=== PATIENT | male | born 1930 | race Caucasian/White ===

== ENCOUNTER 2016-07-05 02:05 | Emergency (ER) | payer MEDICARE, BC ==
--- NOTE | 2016-07-05 03:10 | EDM.PDOC ---
ED HPI GENERAL MEDICAL PROBLEM - General Chief Complaint: Chest Pain Stated Complaint: [facility] Time Seen by Provider: 07/05/16 02:29 Source of Information: Reports: Patient, Old Records, RN Notes Reviewed History Limitations: Reports: No Limitations - History of Present Illness INITIAL COMMENTS - FREE TEXT/NARRATIVE: EMS arrival Chief complaint: Strange feeling in chest HPI: 85-year-old male lives on his own, being a for 3 years, just about to go to sleep 11 PM and then started getting strange feeling in his chest. He tried to ignore it but was keeping him awake and after our he took nitroglycerin , which he had just filled June 01 and one full aspirin. His discomfort subsided. After deliberating he finally called EMS, concerned because he lives on his own. History of myocardial infarction twice previously, and both of those times he didn't have pain in his chest but he had blood pressure interfering with his breathing. His symptoms today are much milder and are now resolved. He has had 2 stents. No recent cough cold fever or infection - Related Data Allergies Allergy/AdvReac Type Severity Reaction Status Date / Time No Known Allergies Allergy Verified 05/26/15 20:17 Home Meds: Home Meds Acebutolol HCl [Acebutolol] 200 mg PO BID 03/07/13 [History] Ascorbic Acid [Vitamin C] 500 mg PO DAILY 03/07/13 [History] Aspirin [Lite Coat Aspirin] 325 mg PO DAILY 03/07/13 [History] Ca Cmb No.1/Vit D3/B-6/FA/B12 [Vitamin D3 1,000 Unit] 1,000 mcg PO DAILY [History] Calcium Carbonate [Calcium] 500 mg PO DAILY 03/07/13 [History] Enalapril Maleate 5 mg PO DAILY 03/07/13 [History] Flaxseed [Flaxseed Oil] 1,000 mg PO DAILY 03/07/13 [History] Gemfibrozil 600 mg PO DAILY 03/07/13 [History] Hydrochlorothiazide 12.5 mg PO DAILY 03/07/13 [History] Isosorbide Mononitrate [Imdur] 60 mg PO DAILY 03/07/13 [History] Multivitamin [Multivitamins] 1 each PO DAILY 03/07/13 [History] Nitroglycerin [Nitrostat] 0.4 mg SL ASDIRECTED PRN 03/07/13 [History] Ubidecarenone [Co Q-10] 100 mg PO DAILY 03/07/13 [History] Cyanocobalamin (Vitamin B12) [Vitamin B12] 1,000 mcg PO DAILY 04/21/14 [History] Cefdinir [Omnicef] 300 mg PO BID #13 cap 05/28/15 [Rx] Past Medical History Cardiovascular History: Reports: CAD, High Cholesterol, Hypertension, [place], Stents Gastrointestinal History: Reports: Diverticulosis, Other (See Below) Other Gastrointestinal History: diverticulitis Genitourinary History: Reports: Prostate Disorder, Urinary Incontinence, Other ( See Below) Other Genitourinary History: hydroceal Musculoskeletal History: Reports: Arthritis, Gout Neurological History: Reports: Migraines, Other (See Below) Other Neuro History: 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 Psychiatric History: Reports: Depression Hematologic History: Reports: Blood Transfusion(s) Oncologic (Cancer) History: Reports: Prostate Dermatologic History: Reports: Other (See Below) Other Dermatologic History: lots of brown moles - Infectious Disease History Infectious Disease History: Reports: Chicken Pox, Measles - Past Surgical History HEENT Surgical History: Reports: Cataract Surgery, Oral Surgery, Tonsillectomy Social & Family History - Tobacco Use Smoking Status *Q: Never Smoker Second Hand Smoke Exposure: No - Caffeine Use Caffeine Use: Reports: Coffee - Alcohol Use Days Per Week of Alcohol Use: 0 Number of Drinks Per Day: 1 Total Drinks Per Week: 0 - Recreational Drug Use Recreational Drug Use: No ED ROS GENERAL - Review of Systems Review Of Systems: See Below Constitutional: Reports: No Symptoms. Denies: Diaphoresis HEENT: Reports: No Symptoms Respiratory: Reports: No Symptoms Cardiovascular: Reports: Other (Chest discomfort but not painful). Denies: Chest Pain, Blood Pressure Problem, Edema, Lightheadedness Endocrine: Reports: No Symptoms GI/Abdominal: Reports: No Symptoms : Reports: No Symptoms Skin: Reports: No Symptoms Neurological: Reports: No Symptoms ED EXAM, GENERAL - Physical Exam Exam: See Below Exam Limited By: No Limitations General Appearance: Alert, No Apparent Distress Throat/Mouth: Normal Inspection, Normal Oropharynx Head: Atraumatic, Normocephalic Neck: Normal Inspection, Non-Tender. No: Carotid Bruit Respiratory/Chest: No Respiratory Distress, No Accessory Muscle Use Cardiovascular: Normal Peripheral Pulses, Regular Rate, Rhythm, No Edema, No Murmur Extremities: Normal Inspection, Non-Tender, No Pedal Edema Neurological: Alert, Oriented, No Motor/Sensory Deficits Skin Exam: Warm, Dry, Intact, Normal Color Course - Vital Signs Last Recorded V/S: Last Vital Signs Temp 36 C 07/05/16 02:11 Pulse 51 L 07/05/16 02:11 Resp 13 07/05/16 02:11 BP 140/94 H 07/05/16 02:11 Pulse Ox 97 07/05/16 02:11 - Orders/Labs/Meds Orders: Active Orders 24 hr Category Date Time Status EKG Documentation Completion [RC] ASDIRECTED Care 07/05/16 02:43 Active EKG 12 Lead [EK] Routine Ther 07/05/16 02:42 Ordered Labs: Laboratory Tests 07/05/16 07/05/16 Range/Units 02:42 02:42 WBC 4.9 (4.5-11.0) K/uL RBC 4.65 (4.30-5.90) M/uL Hgb 14.1 (12.0-15.0) g/dL Hct 42.5 (40.0-54.0) % MCV 91 (80-98) fL MCH 30 (27-31) pg MCHC 33 (32-36) % Plt Count 206 (150-400) K/uL Sodium 140 (140-148) mmol/L Potassium 4.1 (3.6-5.2) mmol/L Chloride 105 (100-108) mmol/L Carbon Dioxide 26 (21-32) mmol/L Anion Gap 8.9 (5.0-14.0) mmol/L BUN 13 (7-18) mg/dL Creatinine 1.3 (0.8-1.3) mg/dL Est Cr Clr Drug Dosing TNP Estimated GFR (MDRD) 53 L (>60) Glucose 111 H (74-106) mg/dL Calcium 8.8 (8.5-10.1) mg/dL Troponin I < 0.017 (0.000-0.056) ng/mL - Re-Assessments/Exams Free Text/Narrative Re-Assessment/Exam: 07/05/16 03:09 84-year-old male with known coronary artery disease, kept awake by an mild chest discomfort tonight which has improved. EKG shows sinus bradycardia rate 52 otherwise normal EKG 07/05/16 03:41 03.40 remained asymptomatic Lab tests reassuring Discharge Followup primary care Departure - Departure Time of Disposition: 03:42 Disposition: Home, Self-Care 01 Condition: good Clinical Impression: Angina pectoris - Discharge Information Instructions: Angina Pectoris, [id number] Forms: ED Department Discharge - My Orders Last 24 Hours: My Active Orders 07/05/16 02:42 EKG 12 Lead [EK] Routine 07/05/16 02:43 EKG Documentation Completion [RC] ASDIRECTED - Assessment/Plan Last 24 Hours: My Active Orders 07/05/16 02:42 EKG 12 Lead [EK] Routine 07/05/16 02:43 EKG Documentation Completion [RC] ASDIRECTED
[2016-07-05 03:57] VITALS: BP 140/63
== END 2016-07-05 03:55 | disposition home or self-care (01) ==
LOC: JP.ED 02:05
DX: I20.9 Angina pectoris, unspecified (principal); I25.2 Old myocardial infarction; I25.10 Atherosclerotic heart disease of native coronary artery without angina pectoris; E78.00 Pure hypercholesterolemia, unspecified; F32.9 Major depressive disorder, single episode, unspecified; Z85.46 Personal history of malignant neoplasm of prostate; Z98.49 Cataract extraction status, unspecified eye; Z98.890 Other specified postprocedural states; Z79.82 Long term (current) use of aspirin; Z79.899 Other long term (current) drug therapy
CPT/HCPCS: 36415; 80048; 84484; 85027; 93005; 93010; 99283; 99285-25

== ENCOUNTER 2017-01-08 19:28 | Emergency (ER) | payer MEDICARE, BC ==
[2017-01-08 19:47] VITALS: BP 138/70
--- NOTE | 2017-01-08 20:09 | EDM.PDOC ---
ED HPI GENERAL MEDICAL PROBLEM - General Chief Complaint: General Stated Complaint: CHEST Time Seen by Provider: 01/08/17 19:57 Source of Information: Reports: Patient, RN Notes Reviewed History Limitations: Reports: No Limitations - History of Present Illness INITIAL COMMENTS - FREE TEXT/NARRATIVE: 86-year-old gentleman presents emergency department day complaint of not feeling right he has some concern of, monoxide poisoning from his heater in his house otherwise no specific complaints Denies Pain Score (Numeric/FACES): 0 - Related Data Allergies Allergy/AdvReac Type Severity Reaction Status Date / Time No Known Allergies Allergy Verified 01/08/17 19:47 Home Meds: Home Meds Acebutolol HCl [Acebutolol] 200 mg PO BID 03/07/13 [History] Ascorbic Acid [Vitamin C] 500 mg PO DAILY 03/07/13 [History] Aspirin [Lite Coat Aspirin] 325 mg PO DAILY 03/07/13 [History] Ca Cmb No.1/Vit D3/B-6/FA/B12 [Vitamin D3 1,000 Unit] 1,000 mcg PO DAILY [History] Calcium Carbonate [Calcium] 500 mg PO DAILY 03/07/13 [History] Enalapril Maleate 5 mg PO DAILY 03/07/13 [History] Flaxseed [Flaxseed Oil] 1,000 mg PO DAILY 03/07/13 [History] Gemfibrozil 600 mg PO DAILY 03/07/13 [History] Hydrochlorothiazide 12.5 mg PO DAILY 03/07/13 [History] Isosorbide Mononitrate [Imdur] 60 mg PO DAILY 03/07/13 [History] Multivitamin [Multivitamins] 1 each PO DAILY 03/07/13 [History] Nitroglycerin [Nitrostat] 0.4 mg SL ASDIRECTED PRN 03/07/13 [History] Ubidecarenone [Co Q-10] 100 mg PO DAILY 03/07/13 [History] Cyanocobalamin (Vitamin B12) [Vitamin B12] 1,000 mcg PO DAILY 04/21/14 [History] Cefdinir [Omnicef] 300 mg PO BID #13 cap 05/28/15 [Rx] Past Medical History Cardiovascular History: Reports: CAD, High Cholesterol, Hypertension, [place], Stents Gastrointestinal History: Reports: Diverticulosis, Other (See Below) Other Gastrointestinal History: diverticulitis Genitourinary History: Reports: Prostate Disorder, Urinary Incontinence, Other ( See Below) Other Genitourinary History: hydroceal Musculoskeletal History: Reports: Arthritis, Gout Neurological History: Reports: Migraines, Other (See Below) Other Neuro History: 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 Psychiatric History: Reports: Depression Hematologic History: Reports: Blood Transfusion(s) Oncologic (Cancer) History: Reports: Prostate Dermatologic History: Reports: Other (See Below) Other Dermatologic History: lots of brown moles - Infectious Disease History Infectious Disease History: Reports: Chicken Pox, Measles, Shingles - Past Surgical History HEENT Surgical History: Reports: Cataract Surgery, Oral Surgery, Tonsillectomy Oncologic Surgical History: Reports: Other (See Below) Other Oncologic Surgeries/Procedures: prostatectomy Social & Family History - Tobacco Use Smoking Status *Q: Never Smoker Second Hand Smoke Exposure: No - Caffeine Use Caffeine Use: Reports: Coffee - Alcohol Use Days Per Week of Alcohol Use: 0 Number of Drinks Per Day: 1 Total Drinks Per Week: 0 - Recreational Drug Use Recreational Drug Use: No ED ROS GENERAL - Review of Systems Review Of Systems: See Below Constitutional: Reports: Other (Not feeling right) HEENT: Reports: No Symptoms Respiratory: Reports: No Symptoms Cardiovascular: Reports: No Symptoms GI/Abdominal: Reports: No Symptoms : Reports: No Symptoms Musculoskeletal: Reports: No Symptoms Skin: Reports: No Symptoms Neurological: Reports: No Symptoms Psychiatric: Reports: No Symptoms ED EXAM, GENERAL - Physical Exam Exam: See Below Free Text/Narrative:: General: Male, not in any distress, alert and oriented x3 HEENT: head is atraumatic normocephalic, eyes pupils equal round reactive to light, sclera clear no conjunctivitis appreciated. Ears tympanic membranes clear and ceja landmarks and light reflex are present bilaterally canals are clear. Nose no septal deviation, nares are clear, no blood present. Mouth mucosa is moist and pink no erythema or exudate noted in soft palate, tongue is midline uvula is midline, dentition is intact. Neck: Supple no thyromegaly no tracheal deviation. Nodes: Cervical nodes subclavicular nodes nontender no palpable lymphadenopathy noted. Lungs: clear to auscultation bilaterally with symmetrical respirations, no adventitious noise appreciated. CV: Regular rate and rhythm S1 and S2 appreciated no murmurs rubs or gallops noted. Abdomen: Soft, nontender, no palpable masses or organomegaly appreciated, no distention no guarding bowel sounds are present, . Neuro: Cranial nerves II through XII grossly intact Skin: Warm and dry, intact Extremities: No lower extremity edema appreciated, Course - Vital Signs Last Recorded V/S: Last Vital Signs Temp 97.9 F 01/08/17 19:45 Pulse 59 L 01/08/17 19:45 Resp 16 01/08/17 19:45 BP 138/70 01/08/17 19:45 Pulse Ox 95 01/08/17 19:45 - Orders/Labs/Meds Orders: Active Orders 24 hr Category Date Time Status Cardiac Monitoring [RC] .As Directed Care 01/08/17 20:05 Active EKG Documentation Completion [RC] ASDIRECTED Care 01/08/17 20:06 Active EKG 12 Lead [EK] Stat Ther 01/08/17 20:06 Ordered Labs: Laboratory Tests 01/08/17 01/08/17 01/08/17 Range/Units 20:06 20:17 20:17 WBC 5.3 (4.5-11.0) K/uL RBC 4.43 (4.30-5.90) M/uL Hgb 13.3 (12.0-15.0) g/dL Hct 40.3 (40.0-54.0) % MCV 91 (80-98) fL MCH 30 (27-31) pg MCHC 33 (32-36) % Plt Count 214 (150-400) K/uL Neut % (Auto) 42 (36-66) % Lymph % (Auto) 41 (24-44) % [place] % (Auto) 12 H (2-6) % Eos % (Auto) 5 H (2-4) % Baso % (Auto) 1 (0-1) % Puncture Site Rt.radial ABG pH 7.519 H (7.350-7.450) ABG pCO2 29.9 L (35.0-42.0) mmHg ABG pO2 80.5 (75.0-100.0) mmHg ABG HCO3 24.2 (22.0-26.0) mmol/L ABG Total CO2 21.0 L (23.0-27.0) mmol/L ABG O2 Saturation 96.9 (95.0-98.0) % ABG O2 Content 17.9 (15.0-23.0) %vol ABG Base Excess 2.4 mm/L ABG Hemoglobin 13.2 L (13.5-18.0) g/dL ABG Oxyhemoglobin 95.8 % ABG Carboxyhemoglobin 0.5 (0.0-1.6) % ABG Methemoglobin 0.6 % Stephen Test Passed O2 Delivery Device Room air Sodium 146 (140-148) mmol/L Potassium 3.8 (3.6-5.2) mmol/L Chloride 108 (100-108) mmol/L Carbon Dioxide 28 (21-32) mmol/L Anion Gap 10.5 (5.0-14.0) mmol/L BUN 27 H D (7-18) mg/dL Creatinine 1.4 H (0.8-1.3) mg/dL Est Cr Clr Drug Dosing 35.44 mL/min Estimated GFR (MDRD) 48 L (>60) Glucose 104 (74-106) mg/dL Lactic Acid (0.4-2.0) mmol/L Calcium 9.0 (8.5-10.1) mg/dL Total Bilirubin 0.3 D (0.2-1.0) mg/dL AST 25 (15-37) U/L ALT 21 (12-78) U/L Alkaline Phosphatase 64 (46-116) U/L Troponin I < 0.017 (0.000-0.056) ng/mL Total Protein 6.5 (6.4-8.2) g/dL Albumin 3.4 (3.4-5.0) g/dL Globulin 3.1 (2.3-3.5) g/dL Albumin/Globulin Ratio 1.1 L (1.2-2.2) Lipase 287 (73-393) U/L Urine Color Urine Appearance Urine pH (4.5-8.0) Ur Specific [place] (1.008-1.030) Urine Protein (NEGATIVE) mg/dL Urine Glucose (UA) (NEGATIVE) mg/dL Urine Ketones (NEGATIVE) mg/dL Urine Occult Blood (NEGATIVE) Urine Nitrite (NEGAITVE) Urine Bilirubin (NEGATIVE) Urine Urobilinogen (NORMAL) mg/dL Ur Leukocyte Esterase (NEGATIVE) Urine RBC (0-5) Urine WBC (0-5) Ur Epithelial Cells Amorphous Sediment Urine Bacteria Urine Mucus Urine Other 01/08/17 01/08/17 Range/Units 20:17 21:05 WBC (4.5-11.0) K/uL RBC (4.30-5.90) M/uL Hgb (12.0-15.0) g/dL Hct (40.0-54.0) % MCV (80-98) fL MCH (27-31) pg MCHC (32-36) % Plt Count (150-400) K/uL Neut % (Auto) (36-66) % Lymph % (Auto) (24-44) % [place] % (Auto) (2-6) % Eos % (Auto) (2-4) % Baso % (Auto) (0-1) % Puncture Site ABG pH (7.350-7.450) ABG pCO2 (35.0-42.0) mmHg ABG pO2 (75.0-100.0) mmHg ABG HCO3 (22.0-26.0) mmol/L ABG Total CO2 (23.0-27.0) mmol/L ABG O2 Saturation (95.0-98.0) % ABG O2 Content (15.0-23.0) %vol ABG Base Excess mm/L ABG Hemoglobin (13.5-18.0) g/dL ABG Oxyhemoglobin % ABG Carboxyhemoglobin (0.0-1.6) % ABG Methemoglobin % Stephen Test O2 Delivery Device Sodium (140-148) mmol/L Potassium (3.6-5.2) mmol/L Chloride (100-108) mmol/L Carbon Dioxide (21-32) mmol/L Anion Gap (5.0-14.0) mmol/L BUN (7-18) mg/dL Creatinine (0.8-1.3) mg/dL Est Cr Clr Drug Dosing mL/min Estimated GFR (MDRD) (>60) Glucose (74-106) mg/dL Lactic Acid 1.1 (0.4-2.0) mmol/L Calcium (8.5-10.1) mg/dL Total Bilirubin (0.2-1.0) mg/dL AST (15-37) U/L ALT (12-78) U/L Alkaline Phosphatase (46-116) U/L Troponin I (0.000-0.056) ng/mL Total Protein (6.4-8.2) g/dL Albumin (3.4-5.0) g/dL Globulin (2.3-3.5) g/dL Albumin/Globulin Ratio (1.2-2.2) Lipase (73-393) U/L Urine Color Yellow Urine Appearance Clear Urine pH 6.0 (4.5-8.0) Ur Specific [place] 1.020 (1.008-1.030) Urine Protein Negative (NEGATIVE) mg/dL Urine Glucose (UA) Normal (NEGATIVE) mg/dL Urine Ketones Negative (NEGATIVE) mg/dL Urine Occult Blood Negative (NEGATIVE) Urine Nitrite Negative (NEGAITVE) Urine Bilirubin Negative (NEGATIVE) Urine Urobilinogen Normal (NORMAL) mg/dL Ur Leukocyte Esterase Negative (NEGATIVE) Urine RBC 0-5 (0-5) Urine WBC Not seen (0-5) Ur Epithelial Cells Few Amorphous Sediment Not seen Urine Bacteria Few Urine Mucus Not seen Urine Other Departure - Departure Time of Disposition: 21:23 Disposition: Home, Self-Care 01 Condition: Good Clinical Impression: Not feeling great, Normotensive - Discharge Information Referrals: Louis Rawls MD [Primary Care Provider] - Forms: ED Department Discharge Additional Instructions: Please followup with your primary care provider in 3-5 days if not better, please call return to the emergency department with worsening of symptoms. - My Orders Last 24 Hours: My Active Orders 01/08/17 20:05 Cardiac Monitoring [RC] .As Directed 01/08/17 20:06 EKG Documentation Completion [RC] ASDIRECTED EKG 12 Lead [EK] Stat - Assessment/Plan Last 24 Hours: My Active Orders 01/08/17 20:05 Cardiac Monitoring [RC] .As Directed 01/08/17 20:06 EKG Documentation Completion [RC] ASDIRECTED EKG 12 Lead [EK] Stat Plan: Assessment Acuity = acute Site and laterality = not feeling right Etiology = unclear etiology Manifestations = none Location of injury = Home Lab values = CBC unremarkable pH 7.5 to PCO2 29.9 PO2 80.5 with a bicarbonate 24 carbon dioxide normal at 0.5 creatinine elevated at 1.4 consistent chronic renal failure stage GIII a urinalysis unremarkable EKG demonstrates a sinus rhythm with no ST changes or depression Plan I reviewed lab work with him mainly reassurance him follow-up with his primary care 3-5 days if no improvement Patient was in agreement with the plan all questions were answered, they were instructed to return to the emergency department or call for worsening symptoms. This note was dictated using [employer] voice recognition software please call with any questions.
== END 2017-01-08 21:30 | disposition home or self-care (01) ==
LOC: JP.ED 19:28
DX: Z71.1 Person with feared health complaint in whom no diagnosis is made (principal); E78.00 Pure hypercholesterolemia, unspecified; I10 Essential (primary) hypertension; Z79.899 Other long term (current) drug therapy
CPT/HCPCS: 36415; 36600; 80053; 81001; 82803; 83605; 83690; 84484; 85025; 93005; 93010; 99282; 99285-25

== ENCOUNTER 2017-06-19 19:00 | Emergency (ER) | payer MEDICARE, BC ==
[2017-06-20 05:28] VITALS: BP 138/55
== END 2017-06-19 20:00 | disposition home or self-care (01) ==
LOC: JP.ED 19:00
DX: S00.532A Contusion of oral cavity, initial encounter (principal); X58.XXXA Exposure to other specified factors, initial encounter
CPT/HCPCS: 99283

== ENCOUNTER 2017-08-16 11:57 | Emergency (ER) | payer MEDICARE, BC ==
[2017-08-16 12:17] VITALS: BP 119/52
--- NOTE | 2017-08-16 12:41 | EDM.PDOC ---
ED HPI GENERAL MEDICAL PROBLEM - General Chief Complaint: General Stated Complaint: COUGH, HEADACHE Time Seen by Provider: 08/16/17 12:25 Source of Information: Reports: Patient, Old Records, RN History Limitations: Reports: No Limitations - History of Present Illness INITIAL COMMENTS - FREE TEXT/NARRATIVE: 86 yo non-smoker presents with a cough since August 02 when he was seen in the clinic and given Tessalon perles. He had negative chest X-rays at that time. Is not running a fever. His cough is slightly better. His nasal discharge has thickened since the beginning of his illness. Has not been back to the clinic for recheck. Onset: Gradual Onset Date: 08/01/17 Duration: Week(s):, Constant Location: Reports: Face (sinuses/nose), Chest Quality: Reports: Other (no pain) Severity: Mild Improves with: Reports: None Worsens with: Reports: None Context: Reports: Other (ill sine mid July, not improving, not getting worse.) Associated Symptoms: Reports: Cough. Denies: Fever/Chills, Shortness of Breath Treatments [employer]: Reports: Other (see below) (Tessalon) - Related Data Allergies Allergy/AdvReac Type Severity Reaction Status Date / Time No Known Allergies Allergy Verified 01/08/17 19:47 Home Meds: Home Meds Acebutolol HCl [Acebutolol] 200 mg PO BID 03/07/13 [History] Ascorbic Acid [Vitamin C] 500 mg PO DAILY 03/07/13 [History] Aspirin [Lite Coat Aspirin] 325 mg PO DAILY 03/07/13 [History] Ca Cmb No.1/Vit D3/B-6/FA/B12 [Vitamin D3 1,000 Unit] 1,000 mcg PO DAILY [History] Calcium Carbonate [Calcium] 500 mg PO DAILY 03/07/13 [History] Enalapril Maleate 5 mg PO DAILY 03/07/13 [History] Flaxseed [Flaxseed Oil] 1,000 mg PO DAILY 03/07/13 [History] Gemfibrozil 600 mg PO DAILY 03/07/13 [History] Hydrochlorothiazide 12.5 mg PO DAILY 03/07/13 [History] Isosorbide Mononitrate [Imdur] 60 mg PO DAILY 03/07/13 [History] Multivitamin [Multivitamins] 1 each PO DAILY 03/07/13 [History] Nitroglycerin [Nitrostat] 0.4 mg SL ASDIRECTED PRN 03/07/13 [History] Ubidecarenone [Co Q-10] 100 mg PO DAILY 03/07/13 [History] Cyanocobalamin (Vitamin B12) [Vitamin B12] 1,000 mcg PO DAILY 04/21/14 [History] Benzonatate 100 mg PO ASDIRECTED PRN 08/16/17 [History] Past Medical History Cardiovascular History: Reports: CAD, High Cholesterol, Hypertension, [place], Stents Gastrointestinal History: Reports: Diverticulosis, Other (See Below) Other Gastrointestinal History: diverticulitis Genitourinary History: Reports: Prostate Disorder, Urinary Incontinence, Other ( See Below) Other Genitourinary History: hydroceal Musculoskeletal History: Reports: Arthritis, Gout Neurological History: Reports: Migraines, Other (See Below) Other Neuro History: 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 Psychiatric History: Reports: Depression Hematologic History: Reports: Blood Transfusion(s) Oncologic (Cancer) History: Reports: Prostate Dermatologic History: Reports: Other (See Below) Other Dermatologic History: lots of brown moles - Infectious Disease History Infectious Disease History: Reports: Chicken Pox, Measles, Shingles - Past Surgical History HEENT Surgical History: Reports: Cataract Surgery, Oral Surgery, Tonsillectomy Oncologic Surgical History: Reports: Other (See Below) Other Oncologic Surgeries/Procedures: prostatectomy Social & Family History - Tobacco Use Smoking Status *Q: Never Smoker - Caffeine Use Caffeine Use: Reports: Coffee - Recreational Drug Use Recreational Drug Use: No ED ROS GENERAL - Review of Systems Review Of Systems: See Below Constitutional: Reports: Malaise HEENT: Reports: Rhinitis, Sinus Problem Respiratory: Reports: Cough. Denies: Shortness of Breath, Wheezing, Pleuritic Chest Pain, Sputum, Hemoptysis Cardiovascular: Reports: No Symptoms GI/Abdominal: Reports: No Symptoms : Reports: No Symptoms Musculoskeletal: Reports: No Symptoms Skin: Reports: No Symptoms Neurological: Reports: No Symptoms Psychiatric: Reports: No Symptoms ED EXAM, GENERAL - Physical Exam Exam: See Below Exam Limited By: No Limitations General Appearance: Alert, WD/WN, No Apparent Distress Eye Exam: Bilateral Eye: Normal Inspection Ears: Normal External Exam, Normal Canal, Hearing Grossly Normal, Normal TMs Ear Exam: Bilateral Ear: Auricle Normal, Canal Normal, TM normal Nose: Clear Rhinorrhea Throat/Mouth: Normal Inspection, Normal Oropharynx, Normal Voice, No Airway Compromise Head: Atraumatic, Normocephalic Neck: Normal Inspection, Supple, Non-Tender Respiratory/Chest: No Respiratory Distress, No Accessory Muscle Use, Rhonchi ( both lungs lower malone) Cardiovascular: Regular Rate, Rhythm, No Edema GI/Abdominal: Normal Bowel Sounds, Soft, Non-Tender, No Distention Back Exam: Normal Inspection. No: CVA Tenderness (R), CVA Tenderness (L) Extremities: Normal Inspection, Normal Range of Motion, Non-Tender, No Pedal Edema Neurological: Alert, Oriented, CN II-XII Intact, Normal Cognition, No Motor/ Sensory Deficits Psychiatric: Normal Affect, Normal Mood Skin Exam: Warm, Dry, Intact, Normal Color, No Rash Course - Vital Signs Last Recorded V/S: Last Vital Signs Temp 35.9 C 08/16/17 12:25 Pulse 59 L 08/16/17 12:25 Resp 15 08/16/17 12:25 BP 119/52 L 08/16/17 12:25 Pulse Ox 94 L 08/16/17 12:25 - Orders/Labs/Meds Orders: Active Orders 24 hr Category Date Time Status Chest 2V [CR] Stat Exams 08/16/17 12:35 Taken Labs: Laboratory Tests 08/16/17 Range/Units 12:46 WBC 5.6 (4.5-11.0) K/uL RBC 4.08 L (4.30-5.90) M/uL Hgb 12.5 (12.0-15.0) g/dL Hct 35.7 L (40.0-54.0) % MCV 88 (80-98) fL MCH 31 (27-31) pg MCHC 35 (32-36) % Plt Count 247 (150-400) K/uL - Radiology Interpretation Free Text/Narrative:: CXR-negative Departure - Departure Time of Disposition: 13:24 Disposition: Home, Self-Care 01 Condition: Good Clinical Impression: Bronchitis - Discharge Information Referrals: Louis Rawls MD [Primary Care Provider] - Forms: ED Department Discharge - My Orders Last 24 Hours: My Active Orders 08/16/17 12:35 Chest 2V [CR] Stat - Assessment/Plan Last 24 Hours: My Active Orders 08/16/17 12:35 Chest 2V [CR] Stat
--- NOTE | 2017-08-17 09:16 | CR ---
Chest 2V INDICATION: cough with rhonchi both bases COMPARISON: 03/07/2013 FINDINGS: Two views. Heart size normal. Infiltrate left lung base likely pneumonia. Right lung clear. No pleural effusion.
== END 2017-08-16 13:44 | disposition home or self-care (01) ==
LOC: JP.ED 11:57
DX: J40 Bronchitis, not specified as acute or chronic (principal); E78.00 Pure hypercholesterolemia, unspecified; I10 Essential (primary) hypertension; I25.2 Old myocardial infarction; Z79.82 Long term (current) use of aspirin; Z79.899 Other long term (current) drug therapy
CPT/HCPCS: 36415; 71046; 71046-26; 85027; 99284

== ENCOUNTER 2022-01-15 09:18 | Emergency (ER) | payer BC, MEDICARE ==
[2022-01-15 09:29] VITALS: BP 160/61; PULSE 51
== END 2022-01-15 11:07 | disposition home or self-care (01) ==
LOC: JP.ED 09:18
DX: R04.0 Epistaxis (principal); I25.10 Atherosclerotic heart disease of native coronary artery without angina pectoris; E78.00 Pure hypercholesterolemia, unspecified; I10 Essential (primary) hypertension; I25.2 Old myocardial infarction; Z79.82 Long term (current) use of aspirin
CPT/HCPCS: 99283